=== PATIENT | female | born 1985 | race Caucasian/White ===

== ENCOUNTER 2016-11-28 12:59 | Emergency (ER) | payer OTHER ==
--- NOTE | 2016-11-28 14:30 | ED NURSING NOTES ---
Clinical Report - Nurses [facility] [address] [place] [address] 11/28/2016 13:00 Patient: LUKE MEI [facility]#: [id number] TRIAGE Triage time 13:08 Nov 28 2016. Acuity: LEVEL 5. Chief Complaint: CHILLS, MUSCLE ACHES, FATIGUE, EYE PAIN and EYE IRRITATION and NECK PAIN (Patient woke up this morning with eye irritated and draining). 13:17 11/28/16. SEPSIS SCREEN: Sepsis Screen. Negative (no infection suspected/documented). LARRY COMA SCORE: Larry Coma Scale: 15- eyes open spontaneously (4); best verbal response- oriented x 4 (5); best motor response- obeys commands (6). --13:17 Carmelita Louis R.N. 13:08 11/28/16. BP: 109/62 (regular adult cuff) taken on the left arm, while lying. HR: 101. RR: 18 (regular). O2 saturation: 100% on room air. Temp: 98.6 F (oral). Pain level now: 5/10. --13:17 Carmelita Louis R.N. Weight: 40.8 kg stated. Height/Length: 60 inches Per Patient. BMI: 17.6. --13:09 Carmelita Louis R.N. Medications None. --13:12 Carmelita Louis R.N. Allergies NKDA. --13:12 Carmelita Louis R.N. History Arrived by private vehicle. Historian: patient. Primary physician (NO PCP). This started today. She has had weakness and skin rash located on the face. Reports muscle aches. 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 PAST MEDICAL HX: Last normal menstrual period- Hasn't had menses for a long time due to IUD. Uses an intrauterine device. Immunizations not up to date. SURGERY HX: No history of previous surgery. SOCIAL HX: Never smoker. No alcohol use or drug use. No infectious disease exposure. ABUSE ASSESSMENT: No report of abuse. --13:17 Carmelita Louis R.N. PROBLEMS: Anemia. --13:13 Carmelita Louis R.N. ADDITIONAL SURGERIES: no known surgeries. Interventions ID band on patient. To treatment room. --13:17 Carmelita Louis R.N. PHYSICAL ASSESSMENT 13:19 11/28/16. Ambulatory to room. GENERAL / NEURO / PSYCH: Alert. Oriented X 4. HEENT: ( Eye red and draining bilat). RESPIRATORY: Respirations not labored. CVS: Capillary refill less than 2 seconds. GI / : Abdomen soft and nontender. SKIN: Skin is warm. --13:19 Carmelita Louis R.N. NURSING PROGRESS NOTES 13:20 11/28/16. Patient gowned. Head of bed elevated. Reassurance given. Two patient identifiers checked. Call light placed in reach. Side rails up x 1. Bed placed in lowest position. Brakes of bed on. Patient ready for evaluation- chart flagged and ED physician notified. ( Patient has some abrasions on face, she says she has been picking at areas on her face. She has a noticeable swollen area about her left eye and she again says she did that from picking at the area). --13:20 Carmelita Louis R.N. 14:15 11/28/16. ( Patient is refusing the visual acuity exam, she says she just wants her prescription so she can leave). --14:15 Carmelita Louis R.N. 14:19 11/28/16. --14:20 Carmelita Louis R.N. 14:18 11/28/16. BP: 95/62 (regular adult cuff) taken on the left arm, while sitting. HR: 96. RR: 16 (regular). O2 saturation: 100% on room air. Temp: 98.9 F (oral). Pain level now: 0/10. --14:20 Carmelita Louis R.N. DISPOSITION / DISCHARGE 14:26 11/28/16. Departure time: 14:Nov 28 2016. Condition at departure: unchanged. No learning barriers present. Discharge instructions provided and reviewed with the patient. Reviewed medication(s) side effects and precautions information. Patient verbalized understanding. Written instructions provided in [place]. No note given. The patient was discharged by the physician. She was discharged home and accompanied by Friend. She left the Emergency Department ambulatory and via private vehicle. Patient driving. ( Patient has no further questions at time of discharge). --14:26 Carmelita Louis R.N. Locked/Released at 11/28/2016 14:29 by Carmelita Louis R.N.
--- NOTE | 2016-11-28 14:30 | ED CLINICAL REPORT ---
Clinical Report - Physicians/Mid Levels [facility] [address] [place] [address] 11/28/2016 13:00 Patient: LUKE MEI Time Seen: 13:47. Arrived- By private vehicle. Historian- patient. HISTORY OF PRESENT ILLNESS Chief Complaint: EYE REDNESS. This started yesterday, involves the right and left eye, is characterized as moderate in severity and has been constant. She also complains of 10 days of body aches. She denies any IV drug use. Not injured from contact lenses. No direct trauma to the eyes. No UV light exposure. Eye discomfort, redness and irritation. A moderate amount of discharge from the right eye and left eye. No photophobia. REVIEW OF SYSTEMS The patient has had a subjective fever and a headache. No sore throat. Muscle aches. PAST HISTORY PCP: None Ops: D&C post , Hosp: Childbirth Illness; None, anemia. SOCIAL HISTORY Never smoker. No drug use. ADDITIONAL NOTES The nursing notes have been reviewed. PHYSICAL EXAM Vital Signs: 11/28/2016 13:08 BP: 109/62. HR: 101. RR: 18. O2 saturation: 100%. Temp: 98.6 F. Pain level now: 5/10. Appearance: Alert. No acute distress. Rt Eye: (THE PATIENT REFUSES VISUAL ACUITIES). Moderately injected conjunctiva. Moderate exudate present. No injury to the periorbital area, conjunctiva or sclera or eyelid edema or erythema. No conjunctival edema or foreign body. No stye present. No injury to the eyelids. Eyes: EOMs intact. Lt Eye: Moderately injected conjunctiva. Moderate exudate present. No injury to the periorbital area, conjunctiva or sclera or eyelid edema or erythema. No conjunctival edema or foreign body. No stye present. No injury to the eyelids. CVS: Tachycardia. Respiratory: No respiratory distress. Breath sounds normal. Abdomen: Nontender. Skin: (Several lesions on the face. This could either be impetigo or picking behavior.). Extremities: Extremities negative. (No track clark.). Neuro: No alteration in mental status. PROGRESS AND PROCEDURES Course of Care: Could be either viral or bacterial conjunctivitis although viral is more likely. Skin lesions could be either impetigo or picking behavior. CLINICAL IMPRESSION Acute mucopurulent conjunctivitis of the right eye and left eye. Impetigo INSTRUCTIONS (YOUR CONJUNCTIVITIS COULD BE EITHER BACTERIAL OR VIRAL. iF IT IS VIRAL u WILL GET BETTER OVER ABOUT 10 DAYS TO 2 WEEKS. iF IT IS BACTERIAL THE ANTIBACTERIAL MEDICATION SHOULD HELP YOU IN 2 OR 3 DAYS OR SKIN RASH COULD BE IMPETIGO). Prescription Medications: Sulamyd ophthalmic solution 10% : Instill 2 drops into affected eye every 2 hours while awake for 1 week. Dispense fifteen (15) mL. No refills. Substitution is permissible. Amoxicillin 500 mg tablets: Take 1 orally every 8 hours for 10 days. Dispense thirty (30). No refills. Follow-up with: [facility], , , [address], , [place], [id number] Follow up. Reason for referral: ESTABLISH PRIMARY CARE. (Electronically signed by Rick Johnson MD 11/30/2016 13:16)
--- NOTE | 2016-11-28 14:30 | ED ORDER SUMMARY ---
..... Patient: LUKE MEI OrderSheet [facility] VisitID: [id number] [address] [place] [address] 31y, F Registration Date/Time: 11/28/2016 ORDER SHEET Weight: 40.8 kg (stated) Allergies: NKDA GENERAL ORDERS: Visual Acuity (13:55 11/28/2016 Lencho HA) (14:22 Blade R.N.) (Cancelled: Patient [id number] Blade R.N.) MEDICATION ORDERS: IV FLUIDS: ORDER SHEET NOTES: [Electronically signed by Carmelita Louis R.N. (14:29 11/28/2016)] [Electronically signed by Rick Johnson MD (13:16 11/30/2016)] [Electronically locked/signed by Carmelita Louis R.N. (14:29 11/28/2016)]
--- NOTE | 2016-11-28 14:30 | ED ORDER SUMMARY ---
..... Patient: LUKE MEI OrderSheet [facility] VisitID: [id number] [address] [place] [address] 31y, F Registration Date/Time: 11/28/2016 ORDER SHEET Weight: 40.8 kg (stated) Allergies: NKDA GENERAL ORDERS: Visual Acuity (13:55 11/28/2016 Lencho HA) (14:22 Blade R.N.) (Cancelled: Patient [id number] Blade R.N.) MEDICATION ORDERS: IV FLUIDS: ORDER SHEET NOTES: [Electronically signed by Carmelita Louis R.N. (14:29 11/28/2016)] [Electronically signed by Rick Johnson MD (13:16 11/30/2016)] [Electronically locked/signed by Carmelita Louis R.N. (14:29 11/28/2016)]
--- NOTE | 2016-11-28 14:30 | ED CLINICAL REPORT ---
Clinical Report - Physicians/Mid Levels [facility] [address] [place] [address] 11/28/2016 13:00 Patient: LUKE MEI Time Seen: 13:47. Arrived- By private vehicle. Historian- patient. HISTORY OF PRESENT ILLNESS Chief Complaint: EYE REDNESS. This started yesterday, involves the right and left eye, is characterized as moderate in severity and has been constant. She also complains of 10 days of body aches. She denies any IV drug use. Not injured from contact lenses. No direct trauma to the eyes. No UV light exposure. Eye discomfort, redness and irritation. A moderate amount of discharge from the right eye and left eye. No photophobia. REVIEW OF SYSTEMS The patient has had a subjective fever and a headache. No sore throat. Muscle aches. PAST HISTORY PCP: None Ops: D&C post , Hosp: Childbirth Illness; None, anemia. SOCIAL HISTORY Never smoker. No drug use. ADDITIONAL NOTES The nursing notes have been reviewed. PHYSICAL EXAM Vital Signs: 11/28/2016 13:08 BP: 109/62. HR: 101. RR: 18. O2 saturation: 100%. Temp: 98.6 F. Pain level now: 5/10. Appearance: Alert. No acute distress. Rt Eye: (THE PATIENT REFUSES VISUAL ACUITIES). Moderately injected conjunctiva. Moderate exudate present. No injury to the periorbital area, conjunctiva or sclera or eyelid edema or erythema. No conjunctival edema or foreign body. No stye present. No injury to the eyelids. Eyes: EOMs intact. Lt Eye: Moderately injected conjunctiva. Moderate exudate present. No injury to the periorbital area, conjunctiva or sclera or eyelid edema or erythema. No conjunctival edema or foreign body. No stye present. No injury to the eyelids. CVS: Tachycardia. Respiratory: No respiratory distress. Breath sounds normal. Abdomen: Nontender. Skin: (Several lesions on the face. This could either be impetigo or picking behavior.). Extremities: Extremities negative. (No track clark.). Neuro: No alteration in mental status. PROGRESS AND PROCEDURES Course of Care: Could be either viral or bacterial conjunctivitis although viral is more likely. Skin lesions could be either impetigo or picking behavior. CLINICAL IMPRESSION Acute mucopurulent conjunctivitis of the right eye and left eye. Impetigo INSTRUCTIONS (YOUR CONJUNCTIVITIS COULD BE EITHER BACTERIAL OR VIRAL. iF IT IS VIRAL u WILL GET BETTER OVER ABOUT 10 DAYS TO 2 WEEKS. iF IT IS BACTERIAL THE ANTIBACTERIAL MEDICATION SHOULD HELP YOU IN 2 OR 3 DAYS OR SKIN RASH COULD BE IMPETIGO). Prescription Medications: Sulamyd ophthalmic solution 10% : Instill 2 drops into affected eye every 2 hours while awake for 1 week. Dispense fifteen (15) mL. No refills. Substitution is permissible. Amoxicillin 500 mg tablets: Take 1 orally every 8 hours for 10 days. Dispense thirty (30). No refills. Follow-up with: [facility], , , [address], , [place], [address] Follow up. Reason for referral: ESTABLISH PRIMARY CARE. (Electronically signed by Rick Johnson MD 11/30/2016 13:16)
--- NOTE | 2016-11-28 14:30 | ED NURSING NOTES ---
Clinical Report - Nurses [facility] [address] [place] [address] 11/28/2016 13:00 Patient: LUKE MEI [facility]#: [id number] TRIAGE Triage time 13:08 Nov 28 2016. Acuity: LEVEL 5. Chief Complaint: CHILLS, MUSCLE ACHES, FATIGUE, EYE PAIN and EYE IRRITATION and NECK PAIN (Patient woke up this morning with eye irritated and draining). 13:17 11/28/16. SEPSIS SCREEN: Sepsis Screen. Negative (no infection suspected/documented). LARRY COMA SCORE: Larry Coma Scale: 15- eyes open spontaneously (4); best verbal response- oriented x 4 (5); best motor response- obeys commands (6). --13:17 Carmelita Louis R.N. 13:08 11/28/16. BP: 109/62 (regular adult cuff) taken on the left arm, while lying. HR: 101. RR: 18 (regular). O2 saturation: 100% on room air. Temp: 98.6 F (oral). Pain level now: 5/10. --13:17 Carmelita Louis R.N. Weight: 40.8 kg stated. Height/Length: 60 inches Per Patient. BMI: 17.6. --13:09 Carmelita Louis R.N. Medications None. --13:12 Carmelita Louis R.N. Allergies NKDA. --13:12 Carmelita Louis R.N. History Arrived by private vehicle. Historian: patient. Primary physician (NO PCP). This started today. She has had weakness and skin rash located on the face. Reports muscle aches. 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 PAST MEDICAL HX: Last normal menstrual period- Hasn't had menses for a long time due to IUD. Uses an intrauterine device. Immunizations not up to date. SURGERY HX: No history of previous surgery. SOCIAL HX: Never smoker. No alcohol use or drug use. No infectious disease exposure. ABUSE ASSESSMENT: No report of abuse. --13:17 Carmelita Louis R.N. PROBLEMS: Anemia. --13:13 Carmelita Louis R.N. ADDITIONAL SURGERIES: no known surgeries. Interventions ID band on patient. To treatment room. --13:17 Carmelita Louis R.N. PHYSICAL ASSESSMENT 13:19 11/28/16. Ambulatory to room. GENERAL / NEURO / PSYCH: Alert. Oriented X 4. HEENT: ( Eye red and draining bilat). RESPIRATORY: Respirations not labored. CVS: Capillary refill less than 2 seconds. GI / : Abdomen soft and nontender. SKIN: Skin is warm. --13:19 Carmelita Louis R.N. NURSING PROGRESS NOTES 13:20 11/28/16. Patient gowned. Head of bed elevated. Reassurance given. Two patient identifiers checked. Call light placed in reach. Side rails up x 1. Bed placed in lowest position. Brakes of bed on. Patient ready for evaluation- chart flagged and ED physician notified. ( Patient has some abrasions on face, she says she has been picking at areas on her face. She has a noticeable swollen area about her left eye and she again says she did that from picking at the area). --13:20 Carmelita Louis R.N. 14:15 11/28/16. ( Patient is refusing the visual acuity exam, she says she just wants her prescription so she can leave). --14:15 Carmelita Louis R.N. 14:19 11/28/16. --14:20 Carmelita Louis R.N. 14:18 11/28/16. BP: 95/62 (regular adult cuff) taken on the left arm, while sitting. HR: 96. RR: 16 (regular). O2 saturation: 100% on room air. Temp: 98.9 F (oral). Pain level now: 0/10. --14:20 Carmelita Louis R.N. DISPOSITION / DISCHARGE 14:26 11/28/16. Departure time: 14:Nov 28 2016. Condition at departure: unchanged. No learning barriers present. Discharge instructions provided and reviewed with the patient. Reviewed medication(s) side effects and precautions information. Patient verbalized understanding. Written instructions provided in U[place]. No note given. The patient was discharged by the physician. She was discharged home and accompanied by Friend. She left the Emergency Department ambulatory and via private vehicle. Patient driving. ( Patient has no further questions at time of discharge). --14:26 Carmelita Louis R.N. Locked/Released at 11/28/2016 14:29 by Carmelita Louis R.N.
--- NOTE | 2016-11-30 13:16 | ED DISCHARGE INSTRUCTIONS ---
Patient: LUKE MEI General Instructions [facility] VisitID: [id number] [address], [place] [address] 31y, F Registration Date/Time: 11/28/2016 Impetigo INSTRUCTIONS (YOUR CONJUNCTIVITIS COULD BE EITHER BACTERIAL OR VIRAL. iF IT IS VIRAL u WILL GET BETTER OVER ABOUT 10 DAYS TO 2 WEEKS. iF IT IS BACTERIAL THE ANTIBACTERIAL MEDICATION SHOULD HELP YOU IN 2 OR 3 DAYS OR SKIN RASH COULD BE IMPETIGO). Prescription Medications: Sulamyd ophthalmic solution 10% : Instill 2 drops into affected eye every 2 hours while awake for 1 week. Dispense fifteen (15) mL. No refills. Substitution is permissible. Amoxicillin 500 mg tablets: Take 1 orally every 8 hours for 10 days. Dispense thirty (30). No refills. Follow-up with: [facility], , , [address], , [place], [address] Follow up. Reason for referral: ESTABLISH PRIMARY CARE. ADDITIONAL INFORMATION Conjunctivitis, Non-Specific The membrane that covers your eye is inflamed. Any itching, burning or irritation should go away within the next 24 hours. Conjunctivitis may be related to a particle that was in your eye. If so, it was washed out with your tears or irrigation treatment. Being exposed to liquid chemicals or fumes may also cause this reaction. Your condition does not appear to be due to an eye infection. Home Care: Apply a cold pack (ice in a plastic bag, wrapped in a towel) over the eye for 20 minutes at a time. This will reduce pain. Eye drops may be prescribed to reduce irritation or redness. Otherwise, Visine or similar [id number] decongestant eye drops may be used. You may use acetaminophen (Tylenol) or ibuprofen (Motrin, Advil) to control pain, unless another medicine was prescribed. [ NOTE: If you have chronic liver or kidney disease or ever had a stomach ulcer or GI bleeding, talk with your doctor before using these medicines.] Follow Up with your doctor or this facility as directed, or if your symptoms have not improved after 24 hours. Get Prompt Medical Attention if any of the following occur: Increased eyelid swelling Increase in eye pain Increased redness or drainage from the eye Failure of normal vision to return within 24-48 hours. Impetigo Impetigo is the name for a bacterial infection of the skin. It is common in children. It may start as an infected insect bite or scratch and spread rapidly to other areas of the body. It is contagious and can be given to other children by touching. The sores usually have a colbert brown crust and grow gradually larger as they spread. Impetigo requires treatment with an antibiotic. Home care The following guidelines will help you care for your infection at home: Trim fingernails and cover sores with an adhesive bandage if necessary to prevent scratching. Picking at the sores may leave a scar. Wash hands (yours and your child's) often. This will avoid spreading the infection to other parts of the body and to other children. Do not let your child share washcloths, towels, pillows, sheets, or clothes with others. Wash these items in hot water before using again. The sores should be washed three times a day with soap and water. Use a washcloth to scrub the sores and remove the crust. Then apply an antibacterial cream as directed. If antibiotic pills or liquid was prescribed, be sure your child takes all the medicine until it is gone. Your child should stay out of school until completing two full days of antibiotic treatment. Use acetaminophen for fever, fussiness or discomfort, unless another medicine was prescribed. In infants over six months of age, you may use ibuprofen instead of acetaminophen. If your child has chronic liver or kidney disease or has ever had a stomach ulcer or GI bleeding, talk with your doctor before using these medicines. (Aspirin should never be used in anyone under 18 years of age who is ill with a fever. It may cause severe liver damage. Follow-up care Follow up with your doctor or this facility if the sores continue to spread after three days of treatment. It will take about 710 days to heal completely. When to seek medical care Get prompt medical attention if any of the following occur: Increasing number of sores or spreading areas of redness after two days of treatment with antibiotics Increasing swelling, or pain Fever of 100.4F (38C) oral or 101.4F (38.5C) rectal or higher, not better with fever medication Increased amounts of fluid or pus coming from the sores Unusual drowsiness, weakness, or change in behavior Loss of appetite or vomiting You have been given the following additional information: Conjunctivitis, Non-Specific Impetigo (Child) (Electronically signed by Rick Johnson MD 11/30/2016 13:16)
--- NOTE | 2016-11-30 13:16 | ED MAR SUMMARY ---
..... Medication Administration Record [facility] [address] [place], [place] [id number] Patient: LUKE MEI Visit ID: [id number] 31y, F Weight: 40.8 kg Height/Length: 60 in BMI: 17.6 ALLERGIES: NKDA
--- NOTE | 2016-11-30 13:16 | ED MAR SUMMARY ---
..... Medication Administration Record [facility] [address] [place], [place] [id number] Patient: LUKE MEI Visit ID: [id number] 31y, F Weight: 40.8 kg Height/Length: 60 in BMI: 17.6 ALLERGIES: NKDA
--- NOTE | 2016-11-30 13:16 | ED MED RECONCILIATION SUMMARY ---
Patient: LUKE MEI Medication Reconciliation Report [facility] VisitID: [id number] [address] [place] [address] 31y, F Registration Date/Time: 11/28/2016 Weight: 40.8 kg Height/Length: 60 in. BMI: 17.6 ALLERGIES: NKDA The patient's Home Medications are listed below: NONE. The source(s) of the original Home Medication information: Not obtained. The following Medications were given to the patient in the Emergency Department: None. The following Medications were prescribed to the patient: Sulamyd ophthalmic solution 10% : Instill 2 drops into affected eye every 2 hours while awake for 1 week. Dispense fifteen (15) mL. No refills. Substitution is permissible. -- Rick Johnson MD Amoxicillin 500 mg tablets: Take 1 orally every 8 hours for 10 days. Dispense thirty (30). No refills. -- Rick Johnson MD
--- NOTE | 2016-11-30 13:16 | ED MED RECONCILIATION SUMMARY ---
Patient: LUKE MEI Medication Reconciliation Report [facility] VisitID: [id number] [address] [place] [address] 31y, F Registration Date/Time: 11/28/2016 Weight: 40.8 kg Height/Length: 60 in. BMI: 17.6 ALLERGIES: NKDA The patient's Home Medications are listed below: NONE. The source(s) of the original Home Medication information: Not obtained. The following Medications were given to the patient in the Emergency Department: None. The following Medications were prescribed to the patient: Sulamyd ophthalmic solution 10% : Instill 2 drops into affected eye every 2 hours while awake for 1 week. Dispense fifteen (15) mL. No refills. Substitution is permissible. -- Rick Johnson MD Amoxicillin 500 mg tablets: Take 1 orally every 8 hours for 10 days. Dispense thirty (30). No refills. -- Rick Johnson MD
--- NOTE | 2016-11-30 13:16 | ED DISCHARGE INSTRUCTIONS ---
Patient: LUKE MEI General Instructions [facility] VisitID: [id number] [address], [place] [address] 31y, F Registration Date/Time: 11/28/2016 Impetigo INSTRUCTIONS (YOUR CONJUNCTIVITIS COULD BE EITHER BACTERIAL OR VIRAL. iF IT IS VIRAL u WILL GET BETTER OVER ABOUT 10 DAYS TO 2 WEEKS. iF IT IS BACTERIAL THE ANTIBACTERIAL MEDICATION SHOULD HELP YOU IN 2 OR 3 DAYS OR SKIN RASH COULD BE IMPETIGO). Prescription Medications: Sulamyd ophthalmic solution 10% : Instill 2 drops into affected eye every 2 hours while awake for 1 week. Dispense fifteen (15) mL. No refills. Substitution is permissible. Amoxicillin 500 mg tablets: Take 1 orally every 8 hours for 10 days. Dispense thirty (30). No refills. Follow-up with: [facility], , , [address], , [place], [address] Follow up. Reason for referral: ESTABLISH PRIMARY CARE. ADDITIONAL INFORMATION Conjunctivitis, Non-Specific The membrane that covers your eye is inflamed. Any itching, burning or irritation should go away within the next 24 hours. Conjunctivitis may be related to a particle that was in your eye. If so, it was washed out with your tears or irrigation treatment. Being exposed to liquid chemicals or fumes may also cause this reaction. Your condition does not appear to be due to an eye infection. Home Care: Apply a cold pack (ice in a plastic bag, wrapped in a towel) over the eye for 20 minutes at a time. This will reduce pain. Eye drops may be prescribed to reduce irritation or redness. Otherwise, Visine or similar [id number] decongestant eye drops may be used. You may use acetaminophen (Tylenol) or ibuprofen (Motrin, Advil) to control pain, unless another medicine was prescribed. [ NOTE: If you have chronic liver or kidney disease or ever had a stomach ulcer or GI bleeding, talk with your doctor before using these medicines.] Follow Up with your doctor or this facility as directed, or if your symptoms have not improved after 24 hours. Get Prompt Medical Attention if any of the following occur: Increased eyelid swelling Increase in eye pain Increased redness or drainage from the eye Failure of normal vision to return within 24-48 hours. Impetigo Impetigo is the name for a bacterial infection of the skin. It is common in children. It may start as an infected insect bite or scratch and spread rapidly to other areas of the body. It is contagious and can be given to other children by touching. The sores usually have a colbert brown crust and grow gradually larger as they spread. Impetigo requires treatment with an antibiotic. Home care The following guidelines will help you care for your infection at home: Trim fingernails and cover sores with an adhesive bandage if necessary to prevent scratching. Picking at the sores may leave a scar. Wash hands (yours and your child's) often. This will avoid spreading the infection to other parts of the body and to other children. Do not let your child share washcloths, towels, pillows, sheets, or clothes with others. Wash these items in hot water before using again. The sores should be washed three times a day with soap and water. Use a washcloth to scrub the sores and remove the crust. Then apply an antibacterial cream as directed. If antibiotic pills or liquid was prescribed, be sure your child takes all the medicine until it is gone. Your child should stay out of school until completing two full days of antibiotic treatment. Use acetaminophen for fever, fussiness or discomfort, unless another medicine was prescribed. In infants over six months of age, you may use ibuprofen instead of acetaminophen. If your child has chronic liver or kidney disease or has ever had a stomach ulcer or GI bleeding, talk with your doctor before using these medicines. (Aspirin should never be used in anyone under 18 years of age who is ill with a fever. It may cause severe liver damage. Follow-up care Follow up with your doctor or this facility if the sores continue to spread after three days of treatment. It will take about 710 days to heal completely. When to seek medical care Get prompt medical attention if any of the following occur: Increasing number of sores or spreading areas of redness after two days of treatment with antibiotics Increasing swelling, or pain Fever of 100.4F (38C) oral or 101.4F (38.5C) rectal or higher, not better with fever medication Increased amounts of fluid or pus coming from the sores Unusual drowsiness, weakness, or change in behavior Loss of appetite or vomiting You have been given the following additional information: Conjunctivitis, Non-Specific Impetigo (Child) (Electronically signed by Rick Johnson MD 11/30/2016 13:16)
== END 2016-11-28 14:25 | disposition home or self-care (01) ==
LOC: ED SRH 12:59
DX: H10.023 Other mucopurulent conjunctivitis, bilateral (principal); L01.00 Impetigo, unspecified